=== PATIENT | female | born 1940 | race Caucasian/White ===

== ENCOUNTER → 2023-11-13 12:05 | Outpatient (REF) | payer MEDICARE, SELFPAY | LOC: RAD 12:05 | PROVIDERS: ATTENDING PHYSICIAN Family Medicine | DX: M25.551 Pain in right hip (principal) | CPT/HCPCS: 73502 ==

== ENCOUNTER → 2024-02-02 11:15 | Outpatient (REF) | payer MEDICARE, SELFPAY | LOC: HWWDC 11:15 | PROVIDERS: ATTENDING PHYSICIAN Family Medicine | DX: Z12.31 Encounter for screening mammogram for malignant neoplasm of breast (principal); Z78.0 Asymptomatic menopausal state | CPT/HCPCS: 77063; 77067; 77080 ==

== ENCOUNTER → 2024-11-02 13:29 | Outpatient (REF) | payer MEDICARE, SELFPAY | LOC: REG 13:29 | PROVIDERS: ATTENDING PHYSICIAN Family Medicine | DX: R10.32 Left lower quadrant pain (principal) | CPT/HCPCS: 73502 ==